=== PATIENT | male | born 1985 | race Caucasian/White ===

== ENCOUNTER → 2018-06-11 | Outpatient (CLI) | payer BC ==
[~2018-06-11] MED LIST: ACYC-57 PO; ADV250/50 INH; AUG875 PO; CLI150 PO; HYDR50CA47 PO; IBUP-1618 PO; LOR7.5/325 PO; MUP2T TOP; NASONEX
[2018-06-11 11:49] LABS: PLATELET COUNT, AUTOMATED 355 K/uL (150-450)
== END ==
LOC: LAB 11:29
PROVIDERS: ATTEND Orthopaedic Surgery Hand Surgery
DX: M25.522 Pain in left elbow (principal); M25.422 Effusion, left elbow
CPT/HCPCS: 36415; 84550; 85025; 87071; 87073; 87077; 87186; 87205; 89060

== ENCOUNTER → 2018-07-01 | Outpatient (REF) | payer BC | LOC: ZZSENDIN 12:17 | PROVIDERS: ATTEND Orthopaedic Surgery Hand Surgery | DX: L08.89 Other specified local infections of the skin and subcutaneous tissue (principal); M01.X22 Direct infection of left elbow in infectious and parasitic diseases classified elsewhere | CPT/HCPCS: 87071; 87073; 87205; 89050 ==